=== PATIENT | male | born 1950 | race Caucasian/White ===

== ENCOUNTER → 2023-09-06 | Outpatient (CLI) | payer MEDICARE | END | disposition home or self-care (01) | LOC: RADMN 12:04 | PROVIDERS: ATTEND Surgery Plastic and Reconstructive Surgery | DX: M19.071 Primary osteoarthritis, right ankle and foot (principal); M19.072 Primary osteoarthritis, left ankle and foot; M85.88 Other specified disorders of bone density and structure, other site; R22.43 Localized swelling, mass and lump, lower limb, bilateral; L89.612 Pressure ulcer of right heel, stage 2; L89.622 Pressure ulcer of left heel, stage 2 ==

== ENCOUNTER 2024-01-26 10:37 | Emergency (ER) | payer MEDICARE ==
[~2024-01-26] VITALS: Ht 185.4 cm; Wt 100.0 kg
[2024-01-26 10:55] VITALS: TEMP 98.4
[2024-01-26] MEDS ORDERED: SODIUM CHLORIDE 0.9% 100 ML ONE (11:13)
[2024-01-26] MEDS ORDERED: IOHEXOL 350 MG/ML 100 ML VIAL ONE (11:13)
[2024-01-26 11:33] LABS: EOSINOPHILS % (AUTO) 3.3 % (1.0-6.0); HEMATOCRIT 36.4 % (41-53); HEMOGLOBIN 12.5 g/dL (13.5-17.5); LYMPHOCYTES # (AUTO) 1.9 K/uL (1.0-4.8); LYMPHOCYTES % (AUTO) 16.4 % (22.0-44.0); MEAN CORPUSCULAR HEMOGLOBIN 33.2 pg (26.0-34.0); MEAN CORPUSCULAR HGB CONC 34.3 G/dL (31.0-37.0); MEAN CORPUSCULAR VOLUME 97 fL (80-100); MONOCYTES # (AUTO) 1.5 K/uL (0.1-1.0); MONOCYTES % (AUTO) 12.7 % (2.0-9.0); NEUTROPHILS # (AUTO) 7.9 K/uL (1.8-7.7); NEUTROPHILS % (AUTO) 66.6 % (40.0-70.0); RED BLOOD CELL COUNT(AUTO) 3.76 MIL/uL (4.50-5.90); RED CELL DISTRIBUTION WIDTH 13.1 % (11.5-14.5); WHITE BLOOD COUNT (AUTO) 11.9 K/uL (4.5-11.0)
[2024-01-26 11:42] LABS: ANION GAP 6 mmol/L (8-16); CALCIUM, TOTAL 8.9 mg/dL (8.8-10.5); CARBON DIOXIDE 31 mmol/L (22-29); CHLORIDE 96 mmol/L (98-107); CREATININE 0.99 mg/dL (0.60-1.30); GLOMERULAR FILTR. RATE CALC > 60 mL/min (>60); GLUCOSE,RANDOM 115 mg/dL (70-110); POTASSIUM 4.2 mmol/L (3.5-5.1); SODIUM SERUM 132 mmol/L (136-145); UREA NITROGEN, BLOOD 28 mg/dL (7-18)
[2024-01-26 11:47] LABS: ALANINE AMINOTRANSFERASE 25 U/L (12-78); ALBUMIN 3.2 g/dL (3.4-5.0); ALKALINE PHOSPHATASE 66 U/L (46-116); ASPARTATE AMINOTRANSFERASE 34 U/L (15-37); BILIRUBIN,TOTAL 0.7 mg/dL (0.1-1.0); LIPASE 23 U/L (16-77); TOTAL PROTEIN, SERUM 7.9 g/dL (6.4-8.2)
[2024-01-26 12:10] LABS: PLATELET COUNT (AUTO) 217 K/uL (150-450)
[2024-01-26 12:16] LABS: APPEARANCE,URINE CLEAR (CLEAR); BILIRUBIN,URINE NEGATIVE (NEGATIVE); COLOR,URINE LIGHT YELLOW (YELLOW); GLUCOSE, URINE (UA) NEGATIVE (NEGATIVE); KETONES,URINE NEGATIVE (NEGATIVE); LEUKOCYTE ESTERASE ,URINE MODERATE (NEGATIVE); NITRATE,URINE NEGATIVE (NEGATIVE); OCCULT BLOOD,URINE NEGATIVE (NEGATIVE); PROTEIN,URINE NEGATIVE (NEGATIVE); SPECIFIC GRAVITIY, URINE 1.012 (1.003-1.030); UROBILINOGEN,URINE <=1.0 mg/dL (<=1.0)
[2024-01-26 12:24] LABS: BACTERIA,URINE Moderate /HPF (None Seen); RBC,URINE None Seen /HPF (0-2); SQUAMOUS EPITHELIAL CELL,UR Few /LPF (None Seen)
[2024-01-26] MEDS ORDERED: BUPR1TAB45 SL (12:55)
[2024-01-26] MEDS ORDERED: HYDR25TA2 PO (12:55)
[2024-01-26] MEDS ORDERED: CARV25 PO (12:55)
[2024-01-26] MEDS ORDERED: AMOX-457 PO (13:24)
[2024-01-26] MEDS ORDERED: CEPH-558 PO (13:26)
[2024-01-26] MEDS: CEPHALEXIN MONOHYDRATE 500 MG CAPSULE PO ONE (13:38)
[2024-01-26] MEDS: AMOX TR/POT CLAV 875 MG/125 MG TABLET PO ONE (13:38)
[2024-01-26 14:50] VITALS: BP 154/90; PULSE 85; RESP 16; O2SAT 97
== END 2024-01-26 14:51 | disposition home or self-care (01) ==
LOC: EMS 10:37
DX: K52.9 Noninfective gastroenteritis and colitis, unspecified (principal); N39.0 Urinary tract infection, site not specified; I10 Essential (primary) hypertension; Z93.3 Colostomy status
CPT/HCPCS: 99285; 74177; 80048; 80076; 81001; 83690; 85025; 87077; 87086; 87186; 36415; Q9967; J7050